=== PATIENT | female | born 2000 | race Caucasian/White ===

== ENCOUNTER 2023-11-25 21:04 | Emergency (ER) | payer OTHER, SELFPAY ==
[2023-11-25 21:05] VITALS: BP 151/108
--- NOTE | 2023-11-25 21:43 | ED.GENMED ---
History of Present Illness
General
Chief Complaint: Chest Pain
Source: patient
Exam Limitations: none
Time Seen by Provider: 11/25/23 21:25
History of Present Illness
History of Present Illness:
23-year-old female presents with episode of chest tightness that started just prior to arrival. She states she felt her heart racing. There was no radiation to the back or arms. She states at the current time there is no chest tightness. There
is no nausea or diaphoresis. No recent travel or surgery no leg swelling or calf pain. She is healthy. Does not smoke. Not on oral contraceptives.
Phy Exam
Physical Exam
Physical Exam:
General: Well-appearing female no acute respiratory distress
HEENT: Normal atraumatic
Heart: Regular but slightly tachycardic
Lungs: Clear no wheeze
Extremities: No cyanosis or edema
Scores
Heart Score for Chest Pain Patients
STEMI patient?: No
History: Slightly or Non-Suspicious
ECG: Normal
Age: </= 45 years
Risk Factors: No Risk Factors
Troponin: </= Normal Limit
Heart Score for Chest Pain Patients: 0
Heart Score Risk: 2.5% MACE over next 6 weeks
Course
Orders/Labs/Results
Orders:
Orders
11/25/23 21:08
Electrocardiogram (*1) Urgent
Reason for Study: Chest Pain
EKG- Treatment ONCE
11/25/23 21:38
Test Result ONCE
11/25/23 21:49
Complete Blood Count/With Diff Urgent
Comprehensive Metabolic Panel Urgent
HCG, Serum Qualitative Screen Urgent
Lipase Urgent
Troponin I Urgent
Abnormal Lab Results
11/25/23
21:49
Hct 36.8 L %
(37.0-47.0)
MCV 79.8 L fL
(81.0-99.0)
Absolute Monos (auto) 0.8 H 10^3/uL
(0.1-0.6)
Glucose 100 H mg/dl
(70-99)
11/25/23 21:49
11/25/23 21:49
Vital Signs
Initial and Last Documented VS:
Initial Vital Signs
Temp Pulse Resp BP Pulse Ox
98.6 F 121 18 151/108 100
11/25/23 21:05 11/25/23 21:05 11/25/23 21:05 11/25/23 21:05 11/25/23 21:05
Last Documented Vital Signs
Temp Pulse Resp BP Pulse Ox
98.6 F 108 19 151/108 98
11/25/23 21:05 11/25/23 22:00 11/25/23 22:00 11/25/23 21:05 11/25/23 22:00
*Critical Care Note
Total Time (30-74mins, 75-104mins- exclusive of procedures): Not Applicable
Update Note
Update Note:
Patient reevaluated states feels better. Heart rate still slightly high. States she is nervous being in the hospital. Again no PE risk factors. Pain was resolved upon my assessment. Do not suspect PE. Patient wishes to go home. Advise
follow-up with family doctor
ED Attending Note
-
Portions of this chart may have been created with voice recognition software.� Occasional wrong word or��sound alike� substitutions may have occurred due to the inherent limitations of voice recognition software.
Discharge Plan
Departure
Patient Disposition: Home (Routine Discharge)
Date of Disposition: 11/25/23
Time of Disposition: 22:58
Patient with high blood pressure during this ER visit?: No
Discharge Problem:
Chest pain
Instructions: Chest Pain PCP Follow Up
Referrals:
Abdullahi Cervantes MD [Family Provider] -
Activity Restrictions/Additional Instructions:
Please return here for worsening symptoms otherwise follow-up with your family doctor
Interventions
Interventions:
*Risk Screen - Suicide Last Done: 11/25/23 21:05
*General Assessment Last Done: 11/25/23 21:05
*Neglect/Abuse Screening Last Done: 11/25/23 21:05
ED- Fall Risk Assessment Last Done: 11/25/23 21:56
ED- Cardiac Assessment Last Done: 11/25/23 21:56
Discharge Date and Time
Print Language: YORUBA
[2023-11-25 21:57] LABS: % Basophils 0.7 % (0-2); % Eosinophils 2.2 % (0-6); % Immature Granulocytes 0.2 % (0-0.5); % Lymphocytes 30.9 % (20.5-51.1); % Monocytes 7.4 % (1.7-9.3); % Neutrophils 58.6 % (42.2-75.2); Absolute Basophils 0.1 10^3/uL (0-0.2); Absolute Eosinophils 0.2 10^3/uL (0-0.7); Absolute Lymphocytes 3.3 10^3/uL (1.2-3.4); Absolute Monocytes 0.8 10^3/uL (0.1-0.6); Absolute Neutrophils 6.3 10^3/uL (1.4-6.5); Hematocrit 36.8 % (37.0-47.0); Hemoglobin 12.9 g/dL (12.0-16.0); Mean Corp Hgb Conc. 35.1 g/dL (33.0-37.0); Mean Corpuscular Volume 79.8 fL (81.0-99.0); Mean Platelet Volume 9.3 fL (7.4-10.4); Nucleated Red Blood Cells % 0 %; Platelet Count 372 10^3/uL (130-400); Red Blood Cell Count 4.61 10^6/uL (4.20-5.40); White Blood Cell Count 10.7 10^3/uL (4.8-10.8)
[2023-11-25 22:14] LABS: HCG, Serum Qualitative Screen Negative
[2023-11-25 22:17] LABS: ALT (SGPT) 23 U/L (0-35); AST (SGOT) 22 U/L (14-36); Albumin 4.8 g/dl (3.5-5.0); Alkaline Phosphatase 63 U/L (38-126); Blood Urea Nitrogen 10 mg/dl (7-17); Calcium 9.2 mg/dl (8.4-10.2); Carbon Dioxide 24 mmol/L (22-30); Chloride 104 mmol/L (98-107); Glucose 100 mg/dl (70-99); Lipase 83 U/L (23-300); Potassium 3.9 mmol/L (3.5-5.1); Sodium 140 mmol/L (135-145); Total Bilirubin 0.3 mg/dl (0.2-1.3); Total Protein 7.4 g/dl (6.3-8.2); eGFR > 60.00
[2023-11-25 22:28] LABS: Troponin I < 0.012 ng/ml
[2023-11-25] MEDS: TYLENOL 650 MG PO (23:04)
[2023-11-25 23:06] VITALS: BP 142/91
== END 2023-11-25 23:10 | disposition home or self-care (01) ==
LOC: EMR 21:04
PROVIDERS: Physician Assistant; EMERGENCY PHYSICIAN Student in an Organized Health Care Education/Training Program; FAMILY PHYSICIAN Family Medicine
DX: R07.9 Chest pain, unspecified (principal)
CPT/HCPCS: 99284; 80053; 83690; 84484; 84703; 85025; 93005

== ENCOUNTER 2024-03-01 15:37 | Emergency (ER) | payer OTHER, SELFPAY ==
[2024-03-01 15:48] VITALS: BP 128/104
[2024-03-01 16:14] LABS: % Basophils 0.5 % (0-2); % Eosinophils 1.8 % (0-6); % Immature Granulocytes 0.4 % (0-0.5); % Lymphocytes 29.6 % (20.5-51.1); % Monocytes 5.7 % (1.7-9.3); Absolute Basophils 0.1 10^3/uL (0-0.2); Absolute Eosinophils 0.2 10^3/uL (0-0.7); Absolute Lymphocytes 2.8 10^3/uL (1.2-3.4); Absolute Monocytes 0.5 10^3/uL (0.1-0.6); Absolute Neutrophils 5.9 10^3/uL (1.4-6.5); Hematocrit 40.6 % (37.0-47.0); Hemoglobin 13.4 g/dL (12.0-16.0); Mean Corpuscular Hgb 27.5 pg (27.0-31.0); Mean Corpuscular Volume 83.2 fL (81.0-99.0); Mean Platelet Volume 9.4 fL (7.4-10.4); Nucleated Red Blood Cells % 0 %; Platelet Count 358 10^3/uL (130-400); Red Blood Cell Count 4.88 10^6/uL (4.20-5.40); Red Cell Dist. Width 12.6 % (11.5-14.5); White Blood Cell Count 9.5 10^3/uL (4.8-10.8)
[2024-03-01 16:27] LABS: ALT (SGPT) 35 U/L (0-35); AST (SGOT) 27 U/L (14-36); Albumin 4.8 g/dl (3.5-5.0); Alkaline Phosphatase 56 U/L (38-126); Blood Urea Nitrogen 17 mg/dl (7-17); Calcium 9.4 mg/dl (8.4-10.2); Carbon Dioxide 23 mmol/L (22-30); Chloride 105 mmol/L (98-107); Glucose 110 mg/dl (70-99); Potassium 4.4 mmol/L (3.5-5.1); Sodium 141 mmol/L (135-145); Total Bilirubin 0.2 mg/dl (0.2-1.3); Total Protein 7.8 g/dl (6.3-8.2); eGFR > 60.00
[2024-03-01 16:30] LABS: HCG, Serum Qualitative Screen Negative
--- NOTE | 2024-03-01 18:44 | ED.GENMED ---
History of Present Illness
General
Chief Complaint: Anxiety
Source: patient and family (mother)
Time Seen by Provider: 03/01/24 18:28
Nursing documentation reviewed up to this point in time: agreed with
History of Present Illness
History of Present Illness:
Patient states she tried to take a nap. States she suddenly felt light headed, felt pins and needeles in body began to tingle. . States her heart began to race and she could not control her symptoms. She crawled into the [place] and called for her
mother who then brought her to ED. States she had a prior panic attack over the summer but this was much more severe. No known trigger. She has discussed antianxiety meds with PCP in past but decision was made to hold off as she had only had 1
event. No other complaints
Past History
Past History
ED Past Medical History: None
Review of Systems
Review of Systems
Allergies reviewed?: Yes
All Other Systems: ROS reviewed and negative except as documented in HPI and ROS
Constitutional: Reports no symptoms
EENT: Reports no symptoms
Respiratory: Reports no symptoms
Cardiac: Reports other (felt heart racing.)
ABD/GI: Reports no symptoms
: Reports no symptoms
Musculoskeletal: Reports no symptoms
Skin: Reports no symptoms
Neurological: Reports other (generalized tingling)
Psychiatric: Reports anxiety
Phy Exam
General Physical Exam
General Presentation: well appearing
General age: appears stated age
General Skin: warm and dry
General Habitus: normal
General Mental: alert
General Hydration: appears well hydrated
Cardiovascular Exam
Cardiovascular Exam: no edema
Pulmonary Exam
Pulmonary Exam: lungs clear and no respiratory distress
Neurological Exam
Neurological Exam: alert, oriented x3, CN II-XII intact, no motor deficits and no sensory deficits
Musculoskeletal Exam
Musculoskeletal Exam: full ROM and neuro vasc intact
Skin Exam
Skin Exam: normal color, warm/dry and no rash
Psychiatric Exam
Psychiatric Exam: normal mood/affect
Course
Orders/Labs/Results
Orders:
Orders
03/01/24 15:53
Test Result ONCE
03/01/24 15:59
CMP [Comprehensive Metabolic Panel] Urgent
Complete Blood Count/With Diff Urgent
HCG, Serum Qualitative Screen Urgent
03/01/24 18:40
Crisis Consult Urgent
Reason for Consult: anxiety/panic attack
03/01/24 18:42
Add On- LAB Urgent
Tests Added?: TSH reflex free T4
Abnormal Lab Results
03/01/24
15:59
Glucose 110 H mg/dl
(70-99)
03/01/24 15:59
03/01/24 15:59
Vital Signs
Initial and Last Documented VS:
Initial Vital Signs
Temp Pulse Resp BP Pulse Ox
98.2 F 116 16 128/104 99
03/01/24 15:48 03/01/24 15:48 03/01/24 15:48 03/01/24 15:48 03/01/24 15:48
Last Documented Vital Signs
Temp Pulse Resp BP Pulse Ox
98.2 F 116 16 128/104 99
03/01/24 15:48 03/01/24 15:48 03/01/24 15:48 03/01/24 15:48 03/01/24 15:48
*Critical Care Note
Total Time (30-74mins, 75-104mins- exclusive of procedures): Not Applicable
Update Note
Update Note:
Patient to ED for panic attack. Symptoms have resolved prior to assessment. Has had 1 other event this past summer. She denies SI, agreeable to meet with crisis. Will discharge home from dept to crisis. SHe will follow up in AM with PCP. given
instructions on s/s to retun to ED and she is agreeable to plan.
ED Attending Note
-
Portions of this chart may have been created with voice recognition software.� Occasional wrong word or��sound alike� substitutions may have occurred due to the inherent limitations of voice recognition software.
Discharge Plan
Departure
Patient Disposition: Home (Routine Discharge)
Date of Disposition: 03/01/24
Time of Disposition: 18:42
Patient with high blood pressure during this ER visit?: No
Condition: Good
Covid-19: Not Applicable
Discharge Problem:
Panic attack
Instructions: Panic Attack ED
Referrals:
Richard Cervantes MD [Family Provider] - Tomorrow
Activity Restrictions/Additional Instructions:
Return to the emergency department immediately for any changes in/worsening of your symptoms.
Interventions
Interventions:
*Risk Screen - Suicide Last Done: 03/01/24 15:41
*Neglect/Abuse Screening Last Done: 03/01/24 18:51
*Nursing Disposition Last Done: 03/01/24 18:51
ED-Psychological Assessment Last Done: 03/01/24 18:51
Discharge Date and Time
Print Language: POLISH
[2024-03-01 20:20] LABS: TSH Reflex To Free T4 2.79 uIU/ml (0.47-4.68)
== END 2024-03-01 18:52 | disposition home or self-care (01) ==
LOC: EMR 15:37
PROVIDERS: EMERGENCY PHYSICIAN Student in an Organized Health Care Education/Training Program; FAMILY PHYSICIAN Internal Medicine
DX: F41.0 Panic disorder [episodic paroxysmal anxiety] (principal)
CPT/HCPCS: 99283; 80053; 84443; 84703; 85025